=== PATIENT | female | born 1970 | race Caucasian/White ===

== ENCOUNTER → 2016-10-14 | Outpatient (CLI) | payer OTHER ==
--- NOTE | 2016-10-16 15:50 | PE ---
Nuclear medicine PET/CT HISTORY: Pulmonary nodule Patient received F-18 FDG intravenously. Delayed scanning performed from the skull base to the mid th ighs. Localization and attenuation correction CT scan was performed. No comparisons available Neck and chest: Right upper lobe lung mass measures 2.5 cm. An adjacent mass in the right upper lobe measures approximately 2 cm, there may be an additional adjacent mass or lobular contour which extend s laterally measuring 8 to 9 mm. There is a large right hilar mass present extending into the mediast inum and superior mediastinum measuring approximately 5.7 cm in greatest transverse dimension. Additi onal adenopathy in the superior mediastinum measures 2.5 cm. There is likely mass effect on the innom inate artery. Confluent adenopathy extends into the subcarinal location. SUV 14-21. No evident axilla ry adenopathy. Small prevascular nodes are present. No pleural or pericardial effusion. Abdomen pelvis: No suspicious hypermetabolic uptake. No evident adrenal mass or liver mass. Arthropa thy Tubal ligation clips are present. Patient is post appendectomy. Osseous structures are unremarkable. Patient is post left hip arthroplasty. IMPRESSION: Right upper lobe lung masses with extensive mediastinal and hilar adenopathy as described . Findings compatible with bronchogenic carcinoma.
== END | disposition home or self-care (01) ==
LOC: RADPETMAIN 12:15
PROVIDERS: ATTEND Internal Medicine Hematology & Oncology
DX: J98.4 Other disorders of lung (principal); R59.0 Localized enlarged lymph nodes
CPT/HCPCS: 78815; A9552

== ENCOUNTER → 2016-10-16 | Outpatient (CLI) | payer OTHER ==
--- NOTE | 2016-10-16 08:39 | CT ---
EXAMINATION TYPE: CT brain w con DATE OF EXAM: 10/16/2016 8:18 AM COMPARISON: NONE HISTORY: headahces, pulmonary nodules CT DLP: [address] of the brain was performed. The ventricles, basal cisterns and sulci overlying the cerebral convexities demonstrate a normal appe arance. There is no evidence for intracranial hemorrhage or sulcal effacement. No mass effects are seen. No enhancing lesion or pathologic enhancement. Osseous calvarium is intact. If symptoms persist consider MRI as clinically warranted. IMPRESSION: 1. No evidence for enhancing intracranial lesion.
== END | disposition home or self-care (01) ==
LOC: RADCTMAIN 07:40
PROVIDERS: ATTEND Internal Medicine Hematology & Oncology
DX: R51 Headache (principal); R91.1 Solitary pulmonary nodule
CPT/HCPCS: 70460; Q9967

== ENCOUNTER → 2017-01-29 | Outpatient (CLI) | payer OTHER ==
[2017-01-29 11:13] LABS: Blood Urea Nitrogen 12 mg/dL (7-17); Non-African American GFR(MDRD) >60 (>60 ml/min/1.73 sqM)
--- NOTE | 2017-01-29 13:43 | CT ---
EXAMINATION TYPE: CT ChestAbdPelvis w con DATE OF EXAM: 01/29/2017 COMPARISON: PET/CT October 14, 2016. HISTORY: Lung cancer progress study. CT DLP: 1374 mGycm. Automated Exposure Control for Dose Reduction was Utilized. CONTRAST: CT scan of the thorax, abdomen and pelvis is performed with IV Contrast, patient injected with 100 mL of Omnipaque 300. FINDINGS: LUNGS: Superior right upper lobe lateral nodule is diminished in size measuring 7 x 7 mm on current s tudy axial image 17 versus 20 x 17 mm prior study image 68. Nodules just inferior and medial to this measures 13 x 11 mm on axial image 19 versus 2.1 x 2.0 cm on prior study image 71. No new nodules or masses are evident. There is no pleural effusion or pneumothorax seen bilaterally. The tracheobronc hial tree is patent. MEDIASTINUM: There are persistent abnormal thoracic lymph nodes. There are diminished in size from pr ior exam making evaluation more accurate as a were more confluent on prior study difficult to accurat [place] measure. Largest lymph node is right para carinal level measuring 3.5 x 2.5 cm on current study i mage 20 it measured approximately 5.4 x 3.0 cm on prior study image 75. Lymph node anterior to SVC is stable or slightly smaller on axial image 23. Right paratracheal lymph node on axial image 24 is sli ghtly smaller in size. Anterior superior extension of adenopathy is improved. There is small pericard ial effusion slightly more prominent. No cardiomegaly is seen. OTHER: No additional significant abnormality is seen. LIVER/GB: No significant abnormality is appreciated. PANCREAS: No significant abnormality is seen. SPLEEN: Surgical clip inferior to the medial margin of spleen is redemonstrated. ADRENALS: No significant abnormality is seen. KIDNEYS: Subcentimeter low dense lesions scattered throughout upper and mid pole level left kidney ar e too small to further characterize but likely reflect simple cysts. BOWEL: No significant abnormality is seen. GENITAL ORGANS: Uterus is anteverted in shape. It is somewhat heterogeneous in appearance and slightl y lobulated, underlying fibroids cannot be excluded. Left ovary is not identified, surgical clips lef t adnexa are noted. Right ovary is normal in size near axial image 100. LYMPH NODES: No greater than 1cm abdominal or pelvic lymph nodes are appreciated. OSSEOUS STRUCTURES: Multilevel spurring in the spine is redemonstrated is redemonstrated.. OTHER: No significant additional abnormality is seen. IMPRESSION: Interval improvement in size of adjacent right upper lung hypermetabolic nodules. Interva l improvement in thoracic adenopathy. No new masses or adenopathy identified.
== END | disposition home or self-care (01) ==
LOC: RADCTMAIN 10:30
PROVIDERS: ATTEND Internal Medicine Hematology & Oncology
DX: R91.8 Other nonspecific abnormal finding of lung field (principal); R60.0 Localized edema; C34.11 Malignant neoplasm of upper lobe, right bronchus or lung
CPT/HCPCS: 82565; 84520; 71260; 74177; 36415; Q9967

== ENCOUNTER 2017-04-14 17:14 | Emergency (ER) | payer OTHER ==
[2017-04-14 17:23] VITALS: TEMP 98.7
[2017-04-14] MEDS ORDERED: RX INFO: IV CONTRAST WAS GIVEN 1 EACH MISC MISCELLANE PRN (17:33)
[2017-04-14] MEDS ORDERED: ONDANSETRON 4 MG/2 ML VIAL IVP STA (17:33)
[2017-04-14] MEDS ORDERED: SODIUM CHLORIDE 0.9% 1,000 ML IV STA (17:33)
--- NOTE | 2017-04-14 17:54 | ED ---
Abdominal Pain HPI <Pete Collins - Last Filed: 04/14/17 19:00> - General Source: patient, RN notes reviewed Mode of arrival: wheelchair Limitations: no limitations <Peewee Escobar - Last Filed: 04/14/17 19:02> - General Chief Complaint: Abdominal Pain Stated Complaint: Abdominal pain Time Seen by Provider: 04/14/17 17:25 - History of Present Illness Initial Comments: This a 47-year-old female presents emergency Department chief complaint of lower abdominal pain last few days. Patient states pain is increasing and is severe at this time. Patient did see primary care physician yesterday who advised her we'll emergency Department though she refused at that time. She had lab work done so she does not all results. Patient denies any dysuria, hematuria, urinary frequency, patiently vaginal discharge, diarrhea constipation. Patient is some nausea no vomiting. Patient states abdominal pain was diffuse states her upper half has resolved but she continues to have lower abdominal pain. Patient has any back pain no flank pain. Patient has fever or chills. (Peewee Escobar) - Related Data Home Medications Medication Instructions Recorded Confirmed Celecoxib [CeleBREX] 200 mg PO DAILY 04/14/17 04/14/17 HYDROcodone/APAP 5-325MG [[place] 1 tab PO Q8H PRN 04/14/17 04/14/17 5-325] Omeprazole 20 mg PO DAILY 04/14/17 04/14/17 Allergies Allergy/AdvReac Type Severity Reaction Status Date / Time No Known Allergies Allergy Verified 04/14/17 17:36 Review of Systems ROS Other: All systems not noted in ROS Statement are negative. <Pete Collins - Last Filed: 04/14/17 19:00> ROS Other: All systems not noted in ROS Statement are negative. <Peewee Escobar - Last Filed: 04/14/17 19:02> ROS Statement: Those systems with pertinent positive or pertinent negative responses have been documented in the HPI. Past Medical History Additional Past Medical History / Comment(s): Lung Ca History of Any Multi-Drug Resistant Organisms: None Reported Past Surgical History: Section, Hernia Repair Additional Past Surgical History / Comment(s): Ovarian cyst Past Psychological History: No Psychological Hx Reported Smoking Status: Former smoker Past Alcohol Use History: Occasional Past Drug Use History: None Reported <Peewee Escobar - Last Filed: 04/14/17 19:02> General Exam Limitations: no limitations General appearance: alert, in no apparent distress Head exam: Present: atraumatic, normocephalic, normal inspection Eye exam: Present: normal appearance, PERRL, EOMI. Absent: scleral icterus, conjunctival injection, periorbital swelling Respiratory exam: Present: normal lung sounds bilaterally. Absent: respiratory distress, wheezes, rales, rhonchi, stridor Cardiovascular Exam: Present: regular rate, normal rhythm, normal heart sounds. Absent: systolic murmur, diastolic murmur, rubs, gallop, clicks GI/Abdominal exam: Present: soft, tenderness (Moderate lower abdominal tenderness), normal bowel sounds. Absent: distended, guarding, rebound, rigid Back exam: Absent: CVA tenderness (R), CVA tenderness (L) Skin exam: Present: warm, dry, intact, normal color. Absent: rash <Peewee Escobar - Last Filed: 04/14/17 19:02> Medical Decision Making - Lab Data Result diagrams: 04/14/17 17:50 04/14/17 17:50 <Pete Collins - Last Filed: 04/14/17 19:00> - Lab Data Result diagrams: 04/14/17 17:50 04/14/17 17:50 <Peewee Escobar - Last Filed: 04/14/17 19:02> - Medical Decision Making Patient examined by myself, Dr. Collins. Patient has mild diffuse abdominal tenderness. Patient states discomfort is tolerable following pain medication. CT reviewed. Case discussed in detail with Dr. Hale who is familiar with this patient. He states if patient is comfortable she can be discharged and follow- up on Sunday for further testing. Patient does prefer to be discharged even though she was offered admission. Patient is agreeable to close follow-up. Patient was fully updated on results and need for close follow-up. Family is also present. (Pete Collins) 47-year-old female presented for abdominal pain. Patient CT does show a large pelvic mass and tenderness for metastatic cancer. Patient himself. Patient's case discussed with Dr. Moe by Dr. Collins. Patient history requesting discharge. Patient has pain medication at home. (Peewee Escobar) - Lab Data Lab Results 04/14/17 04/14/17 04/14/17 Range/Units 17:50 17:50 17:50 WBC 5.3 (3.8-10.6) k/uL RBC 2.83 L (3.80-5.40) m/uL Hgb 8.9 L (11.4-16.0) gm/dL Hct 26.6 L (34.0-46.0) % MCV 93.8 (80.0-100.0) fL MCH 31.3 (25.0-35.0) pg MCHC 33.4 (31.0-37.0) g/dL RDW 12.1 (11.5-15.5) % Plt Count 408 (150-450) k/uL Neutrophils % 77 % Lymphocytes % 14 % Monocytes % 6 % Eosinophils % 1 % Basophils % 0 % Neutrophils # 4.1 (1.3-7.7) k/uL Lymphocytes # 0.7 L (1.0-4.8) k/uL Monocytes # 0.3 (0-1.0) k/uL Eosinophils # 0.1 (0-0.7) k/uL Basophils # 0.0 (0-0.2) k/uL Sodium 136 L (137-145) mmol/L Potassium 4.4 (3.5-5.1) mmol/L Chloride 97 L (98-107) mmol/L Carbon Dioxide 27 (22-30) mmol/L Anion Gap 12 mmol/L BUN 12 (7-17) mg/dL Creatinine 0.63 (0.52-1.04) mg/dL Est GFR (MDRD) Af Amer >60 (>60 ml/min/1.73 sqM) Est GFR (MDRD) Non-Af >60 (>60 ml/min/1.73 sqM) Glucose 93 (74-99) mg/dL Plasma Lactic Acid Vaughn 1.1 (0.7-2.0) mmol/L Calcium 9.3 (8.4-10.2) mg/dL Total Bilirubin 0.7 (0.2-1.3) mg/dL AST 44 H (14-36) U/L ALT 28 (9-52) U/L Alkaline Phosphatase 86 (38-126) U/L Total Protein 6.8 (6.3-8.2) g/dL Albumin 3.9 (3.5-5.0) g/dL Amylase <30 L (30-110) U/L Lipase 42 (23-300) U/L Urine Color Urine Appearance (Clear) Urine pH (5.0-8.0) Urine Protein (Negative) Urine Glucose (UA) (Negative) Urine Ketones (Negative) Urine Blood (Negative) Urine Nitrite (Negative) Urine Bilirubin (Negative) Urine Urobilinogen (<2.0) mg/dL Ur Leukocyte Esterase (Negative) Urine HCG, Qual (Not Detectd) 04/14/17 04/14/17 Range/Units 18:30 18:30 WBC (3.8-10.6) k/uL RBC (3.80-5.40) m/uL Hgb (11.4-16.0) gm/dL Hct (34.0-46.0) % MCV (80.0-100.0) fL MCH (25.0-35.0) pg MCHC (31.0-37.0) g/dL RDW (11.5-15.5) % Plt Count (150-450) k/uL Neutrophils % % Lymphocytes % % Monocytes % % Eosinophils % % Basophils % % Neutrophils # (1.3-7.7) k/uL Lymphocytes # (1.0-4.8) k/uL Monocytes # (0-1.0) k/uL Eosinophils # (0-0.7) k/uL Basophils # (0-0.2) k/uL Sodium (137-145) mmol/L Potassium (3.5-5.1) mmol/L Chloride (98-107) mmol/L Carbon Dioxide (22-30) mmol/L Anion Gap mmol/L BUN (7-17) mg/dL Creatinine (0.52-1.04) mg/dL Est GFR (MDRD) Af Amer (>60 ml/min/1.73 sqM) Est GFR (MDRD) Non-Af (>60 ml/min/1.73 sqM) Glucose (74-99) mg/dL Plasma Lactic Acid Vaughn (0.7-2.0) mmol/L Calcium (8.4-10.2) mg/dL Total Bilirubin (0.2-1.3) mg/dL AST (14-36) U/L ALT (9-52) U/L Alkaline Phosphatase (38-126) U/L Total Protein (6.3-8.2) g/dL Albumin (3.5-5.0) g/dL Amylase (30-110) U/L Lipase (23-300) U/L Urine Color Light Yellow Urine Appearance Clear (Clear) Urine pH 6.5 (5.0-8.0) Urine Protein Trace H (Negative) Urine Glucose (UA) Negative (Negative) Urine Ketones Negative (Negative) Urine Blood Negative (Negative) Urine Nitrite Negative (Negative) Urine Bilirubin Negative (Negative) Urine Urobilinogen <2.0 (<2.0) mg/dL Ur Leukocyte Esterase Negative (Negative) Urine HCG, Qual Not Detected (Not Detectd) Disposition <Pete Collins - Last Filed: 04/14/17 19:00> Time of Disposition: 19:02 <Peewee Escobar - Last Filed: 04/14/17 19:02> Clinical Impression: Pelvic mass, Abdominal pain, Anemia Disposition: HOME SELF-CARE Condition: Stable Instructions: Abdominal Pain (ED) Additional Instructions: Please return to the Emergency Department if symptoms worsen or any other concerns. Referrals: Jass Leal MD [Primary Care Provider] - 1-2 days Jonah Moe MD [STAFF PHYSICIAN] - 1-2 days
[2017-04-14 17:59] LABS: Basophils % (A) 0 %; CH 31.3; CHCM 33.4; Eosinophils # (A) 0.1 k/uL (0-0.7); Eosinophils % (A) 1 %; HCT 26.6 % (34.0-46.0); HDW 2.71; HGB 8.9 gm/dL (11.4-16.0); Luc # (Auto) 0.14; Luc % (Auto) 3; Lymphocytes # (A) 0.7 k/uL (1.0-4.8); Lymphocytes % (A) 14 %; MCH 31.3 pg (25.0-35.0); MCHC 33.4 g/dL (31.0-37.0); MCV 93.8 fL (80.0-100.0); Mean Platelet Volume 7.3; Monocytes # (A) 0.3 k/uL (0-1.0); Monocytes % (A) 6 %; Neutrophils # (A) 4.1 k/uL (1.3-7.7); Neutrophils % (A) 77 %; RBC 2.83 m/uL (3.80-5.40); RDW 12.1 % (11.5-15.5); WBC 5.3 k/uL (3.8-10.6); WBC (Perox) 5.38
[2017-04-14 18:09] LABS: ALT 28 U/L (9-52); AST 44 U/L (14-36); Alkaline Phosphatase 86 U/L (38-126); Amylase <30 U/L (30-110); Anion Gap 12 mmol/L; Blood Urea Nitrogen 12 mg/dL (7-17); Calcium 9.3 mg/dL (8.4-10.2); Carbon Dioxide 27 mmol/L (22-30); Chloride 97 mmol/L (98-107); Glucose 93 mg/dL (74-99); Non-African American GFR(MDRD) >60 (>60 ml/min/1.73 sqM); Potassium 4.4 mmol/L (3.5-5.1); Sodium 136 mmol/L (137-145); Total Bilirubin 0.7 mg/dL (0.2-1.3); Total Protein 6.8 g/dL (6.3-8.2)
[2017-04-14] MEDS ORDERED: HYDROmorphone 1 MG/ML 1 ML SYRINGE IVP STA (18:22)
--- NOTE | 2017-04-14 18:33 | CT ---
EXAMINATION TYPE: CT abdomen pelvis w con DATE OF EXAM: 04/14/2017 COMPARISON: 01/29/2017 HISTORY: Pelvic pain for [address] DLP: 533.1 mGycm Automated exposure control for dose reduction was used. TECHNIQUE: Helical acquisition of images was performed from the lung bases through the pelvis. CONTRAST: Performed without Oral Contrast and with IV Contrast, patient injected with 100 mL of Omnipaque 300. FINDINGS: There is small right pleural effusion. There is patchy pleural thickening and atelectasis at the lung bases. There is a pericardial effusion. Liver spleen pancreas gallbladder appear normal. Bile ducts are not dilated. There is a 11 x 8 cm mix ed density mass in the pelvis. The uterus appears displaced to the left side. This could be a large m ass arising from the right ovary. Bladder distends smoothly. There is no free fluid in the pelvis. Th ere is increased density in the region of left paracolic gutter. There is no adrenal mass. Kidneys show satisfactory contrast opacification. There is no hydronephrosi s. There are multiple surgical clips in the right mid abdomen and there is probably appendectomy. I s ee no bony destructive process. IMPRESSION: COMPARED TO LAST EXAM THERE IS INCREASING PERICARDIAL EFFUSION. THERE IS NEW RIGHT PLEURAL EFFUSION W ITH PLEURAL THICKENING AND ATELECTASIS AT THE LUNG BASES. THERE IS ABNORMAL INCREASED PARACOLIC GUTTER DENSITY WELL A NEW LARGE PELVIC MIXED DENSITY MASS . THESE FINDINGS COULD RELATE TO CARCINOMATOSIS. I WOULD CONSIDER MESOTHELIOMA AND OVARIAN TUMOR AND METASTATIC DISEASE.
[2017-04-14 18:40] LABS: Appearance,Urine Clear (Clear); Bilirubin,Urine Negative (Negative); Glucose,Urine (UA) Negative (Negative); Ketones,Urine Negative (Negative); Leukocyte Esterase,Urine Negative (Negative); Nitrite,Urine Negative (Negative); PH, Urine 6.5 (5.0-8.0); Protein,Urine Trace (Negative); UA Billing (MACRO vs. MICRO) CHEM; Urobilinogen,Urine <2.0 mg/dL (<2.0)
[2017-04-14 19:03] LABS: Specific Gravity,Urine >1.050 (1.001-1.035)
[2017-04-14 19:04] VITALS: BP 111/60; PULSE 116; RESP 17
== END 2017-04-14 19:18 | disposition home or self-care (01) ==
LOC: EC 17:14
DX: D64.9 Anemia, unspecified (principal); R10.30 Lower abdominal pain, unspecified; R19.00 Intra-abdominal and pelvic swelling, mass and lump, unspecified site; R11.0 Nausea; Z87.891 Personal history of nicotine dependence; Z79.1 Long term (current) use of non-steroidal anti-inflammatories (NSAID); Z79.899 Other long term (current) drug therapy
CPT/HCPCS: 36415; 80053; 82150; 83605; 83690; 85025; 81003; 81025; 74177; 99284; 96374; 96375; 96361; J2405; J1170; Q9967

== ENCOUNTER → 2017-06-12 | Outpatient (CLI) | payer OTHER ==
--- NOTE | 2017-06-12 15:27 | US ---
EXAMINATION TYPE: US venous doppler duplex UE DATE OF EXAM: 06/12/2017 COMPARISON: NONE CLINICAL HISTORY: 47-year-old female R22.0 SWELLING MASS,LUMP IN NECK. New port put in her right side 1 week ago, facial swelling and neck swelling followed, no history of DVT, chemo patient SIDE PERFORMED: Bilateral TECHNIQUE: Grayscale, color doppler, spectral doppler imaging performed of the deep veins of the uppe r extremities. Findings: Right Arm: Appears to have non occluding thrombus within IJV and upper subclavian vein as well as bas ilic vein in upper arm. This is characterized by Internal mobile debris within incompletely compressible vein vein. There is diminished or continuous flow at areas noted above. Right-sided catheter is seen within the IJV. Left Arm: Appears to have non occluding thrombus within IJV, proximal upper and mid subclavian vein a nd basilic vein in upper arm. This is characterized by internal mobile debris within incompletely com pressible vein. There is no flow seen within upper subclavian vein. IMPRESSION: 1. DVT involving the bilateral internal jugular veins and upper subclavian veins. Thrombus is primari ly nonocclusive but some occluding thrombus may be present in the distal left subclavian vein. 2. Additional thrombus within the bilateral basilic veins in the upper arm.
== END | disposition home or self-care (01) ==
LOC: RADUSWWP 13:02
PROVIDERS: ATTEND Internal Medicine Hematology & Oncology
DX: I82.C13 Acute embolism and thrombosis of internal jugular vein, bilateral (principal); I82.B13 Acute embolism and thrombosis of subclavian vein, bilateral; I82.613 Acute embolism and thrombosis of superficial veins of upper extremity, bilateral
CPT/HCPCS: 93970

== ENCOUNTER → 2017-07-19 | Outpatient (CLI) | payer OTHER ==
--- NOTE | 2017-07-19 15:51 | XR ---
EXAMINATION TYPE: XR chest 2V DATE OF EXAM: 07/19/2017 COMPARISON: chest ct 06/21/2017 HISTORY: lung ca C34.11 TECHNIQUE: Frontal and lateral views of the chest are obtained. FINDINGS: There is abnormal increased density in the right upper lobe. Abnormal density present at t he right lung base, there is blunting of the costophrenic angle heart is enlarged. Blunting of the le ft costophrenic angle. Catheter is present, distal tip overlying the superior vena cava which is disp laced laterally. No pneumothorax. IMPRESSION: Findings compatible with patient's history of lung cancer with associated right pleural effusion greater than left.
== END | disposition home or self-care (01) ==
LOC: RADXRMAIN 15:00
DX: C34.11 Malignant neoplasm of upper lobe, right bronchus or lung (principal)
CPT/HCPCS: 71020

== ENCOUNTER → 2017-08-03 | Outpatient (CLI) | payer OTHER ==
[2017-08-03 11:50] LABS: Blood Urea Nitrogen 11 mg/dL (7-17)
--- NOTE | 2017-08-03 13:03 | CT ---
EXAMINATION TYPE: CT ChestAbdPelvis w con DATE OF EXAM: 08/03/2017 COMPARISON: Prior CT chest abdomen pelvis 06/21/2017 HISTORY: Follow up to lung CA CT DLP: 536.4 mGycm Automated exposure control for dose reduction was used. CONTRAST: CT scan of the chest, abdomen and pelvis is performed with Oral Contrast and with IV Contrast, patien t injected with 100 mL of Omnipaque 300. FINDINGS: LUNGS: There is been interval development of a nodule along the right hemidiaphragm measuring 2.1 cm in greatest anterior to posterior dimension. The superior mediastinal mass anterior to the superior v cindy cava now measures 4.3 cm in greatest transverse dimension which is increased from 3.6 cm. The pre carinal soft tissue mass now measures approximately 6.7 cm in transverse dimension and measured appro ximately 6.2 cm on prior, the right lower lobe mass now measures 5.6 cm which is increased from 5.5 c m. There is a right pleural effusion greater than left, the left effusion is increased compared to pr evious exam as is the right. Right upper lobe lung nodules are increased as compared to previous exam , one measures 1.4 cm compared to prior when it measured 1 cm, and additional measures 14 mm and pepe ured previously approximately 12 mm. New apical nodule measures 9 mm. There is a pericardial effusion which has increased in size. It now measures 2.2 cm in greatest dimension whereas on prior measured approximately 1.3 cm. MEDIASTINUM: As above AORTA: No significant abnormality is seen. OTHER: No additional significant abnormality is seen. LIVER/GB: No significant abnormality is appreciated. PANCREAS: No significant abnormality is seen. SPLEEN: No significant abnormality is seen. ADRENALS: There is a new left adrenal soft tissue mass measuring 16 mm with central low attenuation KIDNEYS: No significant abnormality is seen. REPRODUCTIVE ORGANS: Right adnexal mass measures 8.1 x 6.7 x 6.8 cm and is increased compared to prio r.. BOWEL: No significant abnormality is seen. FREE AIR: No Free Air visible. ASCITES: None seen. RETROPERITONEAL ADENOPATHY: No retroperitoneal adenopathy is seen. LYMPH NODES: No greater than 1 cm abdominal or pelvic lymph nodes are appreciated. URINARY BLADDER: No significant abnormality is seen. PELVIC ADENOPATHY: None visualized. OSSEOUS STRUCTURES: No significant abnormality is seen. IMPRESSION: Progression of metastatic disease. Progression of pleural effusions and pericardial effus ion.
== END | disposition home or self-care (01) ==
LOC: RADPROMAIN 10:58
PROVIDERS: ATTEND Internal Medicine Hematology & Oncology
DX: C79.71 Secondary malignant neoplasm of right adrenal gland (principal); C79.72 Secondary malignant neoplasm of left adrenal gland; J90 Pleural effusion, not elsewhere classified; I31.3 Pericardial effusion (noninflammatory)
CPT/HCPCS: 82565; 84520; 71260; 74177; Q9967; J1642